=== PATIENT | male | born 1965 | race Caucasian/White ===

== ENCOUNTER 2016-11-01 05:10 | Inpatient (IN) | payer BC ==
[2016-11-01] VITALS (18 sets, daily range): BP systolic 104–146; BP diastolic 57–82
[~2016-11-01] VITALS: Ht 175.3 cm; Wt 104.3 kg
[~2016-11-01 05:10] MED LIST: ASPIR 8181 M1 PO; FLEXERIL10 MG PO; HYDROCHLOROTH12.5 M3 PO; LEVO-T300 MCG PO; LEVOTHYROXINE150 MCG PO; LOSARTAN POTAS100 MG PO; LOTREL 10/41 CAPSULE PO; MOTRIN600 MG PO
[2016-11-01 12:07] LABS: METH RESISTANT S AUREUS PCR NEGATIVE (NEGATIVE)
[2016-11-01] MEDS ORDERED: HYDROCODON-ACE1 EAC7 PO (12:07)
[2016-11-01 12:10] LABS: PROBE CHECK PASS; SPECIMEN PROCESSING CONTROL PASS
[2016-11-02 04:20] VITALS: BP 123/65
[2016-11-02 08:05] VITALS: BP 127/66
== END 2016-11-02 09:45 | disposition home or self-care (01) | DRG 39 ==
LOC: 2SOUTH 05:10 → 4WEST 05:12 → 2SOUTH 08:54 → 4WEST 11:09 → 2SOUTH 14:07 → 4WEST 11-02 09:45
PROVIDERS: Surgery
DX: I65.21 Occlusion and stenosis of right carotid artery (principal); I10 Essential (primary) hypertension; I95.9 Hypotension, unspecified; R01.1 Cardiac murmur, unspecified; F17.220 Nicotine dependence, chewing tobacco, uncomplicated; I73.9 Peripheral vascular disease, unspecified
CPT/HCPCS: 87641; 93005; C1768; J0690; J1644; J2250; J2720; J2795; J3010